=== PATIENT | female | born 1985 | race African-American/Black ===

== ENCOUNTER 2017-11-01 21:15 | Inpatient (IN) | payer OTHER ==
[2017-11-01] MEDS ORDERED: OXYTOCIN 30 UNITS in 0.9% NS 30 UNIT/500 ML INFUS.BAG IVPB ONE (22:29)
[2017-11-01] MEDS ORDERED: ELECTROLYTE-148 SOLN 1,000 ML IV SCH (22:30)
[2017-11-01 22:36] LABS: BASO % 0.3 % (0-2.0); EOS % 1.6 % (0-4.5); HEMATOCRIT 32.3 % (32.4-45.2); HEMOGLOBIN 10.9 GM/dL (10.7-15.3); LYMPH % 19.1 % (8-40); MCH 30.7 pg (25.7-33.7); MCHC 33.9 g/dl (32.0-36.0); MEAN CELL VOLUME 90.8 fl (80-96); MEAN PLT VOLUME 10.1 fl (7.5-11.1); MONO % 11.3 % (3.8-10.2); NEUT % 67.7 % (42.8-82.8); PLATELET COUNT 207 K/MM3 (134-434); RBC 3.56 M/mm3 (3.60-5.2); RDW 13.5 % (11.6-15.6); WHITE BLOOD COUNT 10.2 K/mm3 (4.0-10.0)
--- NOTE | 2017-11-01 22:43 | HP ---
Past Medical History - Primary Care Physician PCP:: Miguel Nuñez - Admission Chief Complaint: 32yo P3 with at EGA 38w4d admitted with spontaneous labor. History of Present Illness: with spontaneous labor Asthma Smoker- stopped 06/2017 hx Epilepsy- resolved. Pt refused to see Neurologist. 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 Cardiovascular: No: AFIB, Aneurysm, Aortic Insufficiency, Aortic Stenosis, CAD, CHF, Deep Vein Thrombosis, HTN, Hyperlipdemia, AR, Mitral Insufficiency, Mitral Stenosis, Murmur, Pulmonary Hypertension, Other Pulmonary: Yes: Asthma Gastrointestinal: No: Ascites, Cancer, Constipation, Crohn's Disease, Diverticulitis, Diverticulosis, Esophageal Varices, Gastritis, GERD, GI Bleed, Hemorrhoids, Hiatal Hernia, Inflamatory Bowel Disease, Irritable Bowel Disease, Pancreatitis, Peptic Ulcer Disease, Ulcerative Colitis, Other Hepatobiliary: No: Cirrhosis, Cholelithiasis, Cholecystitis, Choledocholithiasis , Hepatitis A, Hepatitis B, Hepatitis C, Other Renal/: No: Renal Failure, Renal Inusuff, BPH, Cancer, Hematuria, Hemodialysis , Neurogenic Bladder, Renal Calculi, UTI, Other Reproductive: No: Ectopic , Endometriosis, Fibroids, PID, Polycystic Ovary Syndrome, Postmenopausal, Other ...Para: 3 ( x 3) ... Weeks Gestation by Dates: 38.3 Heme/Onc: Yes: Anemia Infectious Disease: No: AIDS, C-Diff, Herpes Zoster, HIV, MRSA, STD's, Tuberculosis, VREF, Other Psych: No: Addictions, Anxiety, Bipolar, Depression, Panic, Psychosis, Schizophrenia, Other Musculoskeletal: No: Bursitis, Chronic low back pain, Hemiparesis, Hemiplegia, Osteoarthritis, Paraplegia, Other Rheumatology: No: Fibromyalgia, Gout, Lupus, Rheumatoid Arthritis, Sarcoidosis, Vasculitis, Other ENT: No: Allergic Rhinitis, Sinusitis, Other Endocrine: No: Ramakrishna's Disease, Jose's Disease, Diabetes Insipidus, Diabetes Mellitus, Hyperparathyroidism, Hyperthyroidism, Hypothyroidism, Osteopenia, SIADH, Other Dermatology: No: Basal Cell, Cellulitis, Eczema, Melanoma, Psoriasis, Squamous Cell, Other - Past Surgical History Past Surgical History: Yes: None Hx Myomectomy: No Hx Transabdominal Cerclage: No - Smoking History Smoking history: Never smoked Have you smoked in the past 12 months: No Aproximately how many cigarettes per day: 7 - Alcohol/Substance Use Hx Alcohol Use: No History of Substance Use: reports: None - Social History Usual Living Arrangement: Yes: Alone, With Child ADL: Independent History of Recent Travel: No Home Medications - Allergies Allergies/Adverse Reactions: Allergies Allergy/AdvReac Type Severity Reaction Status Date / Time No Known Allergies Allergy Verified 10/26/17 21:14 - Home Medications Home Medications: Ambulatory Orders Albuterol Sulfate Inhaler - 1 - 2 puff PO PRN PRN 10/16/17 Tablet 1 tablet PO DAILY 10/16/17 Family Disease History - Family Disease History Family History: Unremarkable Family Disease History: Other: Grandparent (Sz) Review of Systems - Review of Systems Constitutional: reports: Other (Labor) Eyes: reports: No Symptoms HENT: reports: No Symptoms Neck: reports: No Symptoms Cardiovascular: reports: No Symptoms Respiratory: reports: No Symptoms Gastrointestinal: reports: No Symptoms Genitourinary: reports: No Symptoms Breasts: reports: No Symptoms Reported Musculoskeletal: reports: No Symptoms Integumentary: reports: No Symptoms Neurological: reports: No Symptoms Endocrine: reports: No Symptoms Hematology/Lymphatic: reports: No Symptoms Psychiatric: reports: No Symptoms Pain Intensity: 7 Physical Exam - Maternity Constitutional: Yes: Well Nourished, No Distress, Calm Eyes: Yes: WNL, Conjunctiva Clear HENT: Yes: WNL, Atraumatic, Normocephalic Neck: Yes: WNL, Supple, Trachea Midline Cardiovascular: Yes: WNL, Regular Rate and Rhythm Lungs: Clear to auscultation, Normal air movement - Abdominal Exam/OB Fundal Height: 39 Number of Fetuses: Single Presentation: Vertex Contractions: Yes Regularity: Regular Intensity: Mild/Mod Monitor Mode: External Heart Rate (range): 130 Heart Rate Location: Midline Category: I Accelerations: Non-Uniform Decelerations: None - Vaginal Exam/OB Vaginal Bleediing: No Speculum Exam: No Dilatation (cm): 5 Effacement (%): 80 Amniotic Membrane Status: Intact Presentation: Vertex/Position Station: -3 - Physical Exam Musculoskeletal: Yes: WNL Extremities: Yes: WNL Edema: No Integumentary: Yes: WNL Deep Tendon Reflex Grade: Normal +2 ...Motor Strength: WNL Psychiatric: Yes: WNL, Alert, Oriented - Labs Lab Results: CBC, BMP 11/01/17 22:30 Hemorrhage Risk Assessment - Risk Factors Medium Risk Factors: Yes: None High Risk Factors: Yes: None Risk Score: 1 Risk Level: Medium Risk Imaging - Results Ultrasound: Report Reviewed Assessment/Plan 32yo P3 with at EGA 38w4d admitted with spontaneous labor. fetus requires no intervention. Labor in early active phase but contractions are irregular. Plan to augment with pitocin. AROM with head descent. Anticipate .
[2017-11-01] MEDS ORDERED: BUTORPHANOL TARTRATE 1 MG/ML VIAL IVPB ONE (22:45)
[2017-11-01] MEDS ORDERED: OXYTOCIN 30 UNITS in 0.9% NS 30 UNIT/500 ML INFUS.BAG IVPB SCH (22:45)
[2017-11-01] MEDS ORDERED: PROMETHAZINE HCL 25 MG/1 ML VIAL IVPB ONE (22:45)
[2017-11-01 22:48] LABS: INR 0.99 (0.82-1.09); PROTHROMBIN TIME (PATIENT) 11.2 SEC (9.7-13.0)
[2017-11-01 22:50] LABS: ACTIVATED PTT 28.4 SECONDS (26.9-34.4)
[2017-11-01 22:58] LABS: ANION GAP 8 (8-16); BLOOD UREA NITROGEN 5 mg/dL (7-18); CALCIUM 8.5 mg/dL (8.5-10.1); CHLORIDE 107 mmol/L (98-107); CO2 23 mmol/L (21-32); CREATININE 0.6 mg/dL (0.55-1.02); GLUCOSE,RANDOM 86 mg/dL (74-106); SODIUM 138 mmol/L (136-145)
[2017-11-02 02:00] VITALS: BMI 35.6
--- NOTE | 2017-11-02 02:17 | PN ---
Ante-Partal Exam - Subjective Subjective: Pt is c/o pressure and contractions Vital Signs: Vital Signs Temperature 97.8 F 11/02/17 01:00 Pulse Rate 106 H 11/02/17 01:00 Respiratory Rate 19 11/02/17 01:00 Blood Pressure 110/58 11/02/17 01:00 O2 Sat by Pulse Oximetry (%) Bleeding: No Headache: No Visual changes: No Right upper quadrant pain: No Pain (scale 1-10): 8 - Contractions Contractions: Yes Regularity: Irregular Intensity: Moderate Monitor Mode: External - Exam during Labor Heart Rate: 140 Variability: Moderate Heart Rate Location: Midline Category: I Monitor Accelerations: Present Monitor Decelerations: None Exam: Vaginal Dilatation (cm): 5 Effacement (%): 80 Amniotic Membrane Status: Ruptured (AROM) Amniotic Fluid: Clear Presentation: Vertex Station: -3 Remarks: Adequate gynecoid pelvimetry - Intrapartum Hemorrhage Risk Medium Risk Factors: None High Risk Factors: None Risk Score: 0 Risk Level: Low Risk - Assessment/Plan Assessment/Plan: No cervical change. AROM done. Fetus requires no intervention. Monitor labor.
[2017-11-02] MEDS ORDERED: PROMETHAZINE HCL 25 MG/1 ML VIAL ONE (02:21)
[2017-11-02] MEDS ORDERED: BUTORPHANOL TARTRATE 1 MG/ML VIAL ONE ×2 (02:22)
[2017-11-02] MEDS ORDERED: OXYTOCIN 20 UNITS in 0.9% NS 20 UNIT/1,000 ML INFUS.BAG IV ONE (04:08)
[2017-11-02] MEDS: OXYTOCIN 20 UNITS in 0.9% NS 20 UNIT/1,000 ML INFUS.BAG IV SCH (04:20)
[2017-11-02] MEDS ORDERED: BENZOCAINE 28 GM HEMORRHOIDAL OINTMENT TP PRN (04:28)
[2017-11-02] MEDS ORDERED: WITCH HAZEL 50% (TUCKS) 40 PAD/JAR PAD TP PRN (04:28)
[2017-11-02] MEDS ORDERED: BENZOCAINE 20% 57 GM BOTTLE TP PRN (04:28)
[2017-11-02] MEDS ORDERED: METHYLERGONOVINE MALEATE 0.2 MG/1 ML AMP IM PRN (04:28)
[2017-11-02] MEDS ORDERED: BISACODYL 10 MG SUPP.RECT RC PRN (04:28)
[2017-11-02] MEDS ORDERED: ACETAMINOPHEN 325 MG TABLET (FP) ONE (05:46)
[2017-11-02] MEDS ORDERED: IBUPROFEN 600 MG TABLET (FP) PO ONE (05:46)
[2017-11-02] MEDS: IBUPROFEN 600 MG TABLET (FP) PO PRN ×3 (05:50→17:53)
[2017-11-02] MEDS: ACETAMINOPHEN 325 MG TABLET (FP) PO PRN ×3 (05:50→17:53)
[2017-11-02] MEDS: PRENATAL VITAMINS W/ FOLIC ACID TABLET (FP) PO SCH (09:41)
[2017-11-03 09:05] LABS: BASO % 0.4 % (0-2.0); EOS % 2.2 % (0-4.5); HEMATOCRIT 29.9 % (32.4-45.2); HEMOGLOBIN 10.2 GM/dL (10.7-15.3); LYMPH % 32.1 % (8-40); MCH 30.9 pg (25.7-33.7); MCHC 33.9 g/dl (32.0-36.0); MEAN CELL VOLUME 91.1 fl (80-96); MEAN PLT VOLUME 10.7 fl (7.5-11.1); NEUT % 52.3 % (42.8-82.8); PLATELET COUNT 172 K/MM3 (134-434); RBC 3.29 M/mm3 (3.60-5.2); RDW 13.7 % (11.6-15.6); WHITE BLOOD COUNT 10.6 K/mm3 (4.0-10.0)
[2017-11-03] MEDS: OXYTOCIN 20 UNITS in 0.9% NS 20 UNIT/1,000 ML INFUS.BAG IV SCH (09:10)
--- NOTE | 2017-11-03 09:41 | PN ---
Post Progress Note - Subjective Subjective: Patient without acute complaints. Reports tolerating oral intake without nausea or vomiting. Ambulating without dizziness. Denies fevers or chills. Pain well controlled with oral pain medication. without difficulty. Passing flatus. Post Day: 1 Type of Delivery: Vital Signs: Vital Signs Temperature 99.1 F 11/03/17 09:05 Pulse Rate 87 11/03/17 09:05 Respiratory Rate 17 11/03/17 09:05 Blood Pressure 117/65 11/03/17 09:05 O2 Sat by Pulse Oximetry (%) 96 11/02/17 05:30 Breast Exam: Yes: Engorged Uterus: Yes: Fundus Firm, Fundus below umbilicus Abdomen/GI: Yes: Abdomen soft, Passing flatus, Tolerating PO. No: Abdominal Distention, Tender Lochia: Yes: Serosa Lochia, amount: Small Extremities: Yes: Calves non-tender Activity: Ambulating - Labs Labs: CBC WBC 10.2 K/mm3 (4.0-10.0) H 11/01/17 22:30 RBC 3.56 M/mm3 (3.60-5.2) L 11/01/17 22:30 Hgb 10.9 GM/dL (10.7-15.3) 11/01/17 22:30 Hct 32.3 % (32.4-45.2) L 11/01/17 22:30 MCV 90.8 fl (80-96) 11/01/17 22:30 MCH 30.7 pg (25.7-33.7) 11/01/17 22:30 MCHC 33.9 g/dl (32.0-36.0) 11/01/17 22:30 RDW 13.5 % (11.6-15.6) 11/01/17 22:30 Plt Count 207 K/MM3 (134-434) 11/01/17 22:30 MPV 10.1 fl (7.5-11.1) 11/01/17 22:30 Absolute Neuts (auto) 6.9 # 11/01/17 22:30 Neutrophils % 67.7 % (42.8-82.8) 11/01/17 22:30 Lymphocytes % 19.1 % (8-40) 11/01/17 22:30 Monocytes % 11.3 % (3.8-10.2) H 11/01/17 22:30 Eosinophils % 1.6 % (0-4.5) 11/01/17 22:30 Basophils % 0.3 % (0-2.0) 11/01/17 22:30 Nucleated RBC % 0 % (0-0) 11/01/17 22:30 Assessment/Plan 32 yo PPD # 1 s/p , afebrile, vital signs stable, doing well 1. Continue routine care. 2. AM CBC with mild anemia, patient asymptomatic at this time. Will start ferrous sulfate. 3. Rh positive status, no rhogam indicated. 4. Encourage ambulation 5. Continue oral pain medication 6. Anticipate discharge home day #2
[2017-11-03] MEDS ORDERED: FERROUS SO4 325 MG TABLET (FP) PO SCH (10:00)
[2017-11-03] MEDS: PRENATAL VITAMINS W/ FOLIC ACID TABLET (FP) PO SCH (10:08)
[2017-11-03] MEDS: FERROUS SO4 325 MG TABLET (FP) PO SCH (17:06)
[2017-11-03] MEDS: IBUPROFEN 600 MG TABLET (FP) PO PRN (17:10)
[2017-11-03] MEDS: ACETAMINOPHEN 325 MG TABLET (FP) PO PRN (17:11)
[2017-11-03] MEDS ORDERED: SENNOSIDES/DOCUSATE COMBO (SENNA PLUS) TABLET (UD) PO PRN (22:00)
[2017-11-04] MEDS: ACETAMINOPHEN 325 MG TABLET (FP) PO PRN (02:52)
[2017-11-04] MEDS: IBUPROFEN 600 MG TABLET (FP) PO PRN (02:52)
--- NOTE | 2017-11-04 07:06 | DS ---
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 WRAPPER Vital Signs: Vital Signs Temperature 98.2 F 11/03/17 21:00 Pulse Rate 83 11/03/17 21:00 Respiratory Rate 18 11/03/17 21:00 Blood Pressure 131/75 11/03/17 21:00 O2 Sat by Pulse Oximetry (%) 96 11/02/17 05:30 Constitutional: Yes: Well Nourished, No Distress, Calm Eyes: Yes: WNL, Conjunctiva Clear, EOM Intact HENT: Yes: WNL, Atraumatic, Normocephalic Neck: Yes: WNL, Supple, Trachea Midline Cardiovascular: Yes: WNL, Regular Rate and Rhythm Respiratory: Yes: WNL, Regular, CTA Bilaterally Gastrointestinal: Yes: WNL ...Rectal Exam: Yes: WNL Renal/: Yes: WNL Pelvis: Yes: WNL ....Post : Yes: Uterus firm, Uterus non-tender, Slight lochia rubra Breast(s): Yes: WNL Musculoskeletal: Yes: WNL Extremities: Yes: WNL Edema: No Integumentary: Yes: WNL Neurological: Yes: WNL, Alert, Oriented ...Motor Strength: WNL Psychiatric: Yes: WNL, Alert, Oriented Labs: CBC, BMP 11/03/17 06:00 11/01/17 22:30 Delivery - Delivery Vaginal Delivery: Spontaneous Type of Anesthesia: None Episiotomy/Laceration: None EBL (cc): 300 Delivery, Single - Stages of Labor Date 1st Stage Initiatied: 11/01/17 Time 1st Stage Initiated: 09:15 Date 2nd Stage Initiated: 11/02/17 Time 2nd Stage Initiated: 04:10 Date of Delivery: 11/02/17 Time of Delivery: 04:16 Time Placenta Delivered: 04:20 Placenta: Yes: Spontaneous - Condition of Infant Interrelated Special Education Teacher/Dispensing And Measuring Optician Present: No Infant Gender: Female Weight: 7 lb 4 oz Position: OA Total Hours ROM (Hrs/Mins): 2Hrs/6Min - 1 Minute Total Score: 9 5 Minutes Total Score: 9 - [place] Feeding Plan Initial Plan: Elected not to breastfeed exclusively throughout hospitalization Discharge Summary Reason For Visit: LABOR Current Active Problems Vaginal delivery (Acute) Procedures: Principal: Hospital Course: no complication Condition: Good - Instructions Diet, Activity, Other Instructions: Physical activity Resume your normal everyday activity as tolerated no heavy lifting or exercise until seen by your surgeon. You may walk unlimited erin of and climb stairs. You may resume driving the car when you feel safe and comfortable behind the wheel. No sexual activity as instructed. Diet There are no dietary restrictions. Eat healthy, high-fiber foods. Drink 6 to 8 glasses of liquid each day. This will assist in keeping your bowels are regular. Pain management You may take Tylenol or acetaminophen or Ibuprofen (for example, Motrin, Advil etc.) from my pain prescription medication is ordered should be taken as prescribed for moderate to severe pain. Call MD for any of the following: Severe pain not relieved by medication Fever of 101 or higher Excessive bleeding or drainage on dressing Inability to urinate Disposition: HOME - Home Medications Comprehensive Discharge Medication List: Ambulatory Orders Albuterol Sulfate Inhaler - 1 - 2 puff PO PRN PRN 10/16/17 Tablet 1 tablet PO DAILY 10/16/17
[2017-11-04] MEDS: FERROUS SO4 325 MG TABLET (FP) PO SCH (09:11)
[2017-11-04] MEDS: PRENATAL VITAMINS W/ FOLIC ACID TABLET (FP) PO SCH (09:11)
[2017-11-04 13:57] VITALS: BP 111/73; PULSE 80; TEMP 98.9
--- NOTE | 2017-11-07 12:02 | PN ---
Delivery - Delivery Vaginal Delivery: No Problems, Spontaneous Type of Anesthesia: None Episiotomy/Laceration: None EBL (cc): 300 Delivery, Single - Stages of Labor Date 1st Stage Initiatied: 11/01/17 Time 1st Stage Initiated: 09:15 Date 2nd Stage Initiated: 11/02/17 Time 2nd Stage Initiated: 04:10 Date of Delivery: 11/02/17 Time of Delivery: 04:16 Time Placenta Delivered: 04:20 Placenta: Yes: Spontaneous - Condition of Needle Control Cheniller/Supply Person Present: No Gender: Female Weight: 3.289 kg Position: OA Total Hours ROM (Hrs/Mins): 2Hrs/6Min - 1 Minute Total Score: 9 5 Minutes Total Score: 9 - [place] Feeding Plan Initial Plan: Elected not to breastfeed exclusively throughout hospitalization Remarks - Remarks Remarks: Uncomplicated
== END 2017-11-04 13:15 | disposition home or self-care (01) | DRG 560 ==
LOC: JLDR 21:15 → J3W 11-02 06:13
PROVIDERS: ADMIT Obstetrics & Gynecology; ATTEND Obstetrics & Gynecology
PROC: 10E0XZZ Delivery of Products of Conception, External Approach (ICD-10-PCS; principal; 2017-11-02)
DX: O36.0930 Maternal care for other rhesus isoimmunization, third trimester, not applicable or unspecified (principal); G40.909 Epilepsy, unspecified, not intractable, without status epilepticus; O99.013 Anemia complicating pregnancy, third trimester; D64.9 Anemia, unspecified; O26.893 Other specified pregnancy related conditions, third trimester; J45.909 Unspecified asthma, uncomplicated; Z87.891 Personal history of nicotine dependence; Z3A.38 38 weeks gestation of pregnancy; Z37.0 Single live birth
CPT/HCPCS: 36415; 59409; 80048; 85025; 85610; 85730; 86593; 86850; 86900; 86901; 87389